=== PATIENT | male | born 1980 ===

== ENCOUNTER → 2023-01-29 07:05 | Outpatient (CLI) | payer OTHER, SELFPAY ==
--- NOTE | ~2023-01-29 | MR_ITS ---
EXAMINATION: MR knee LT wo con DATE: 01/29/2023 07:42 INDICATION: Left knee pain TECHNIQUE: Magnetic resonance imaging (MRI) of the left knee was performed without intravenous contra st. Sequences included coronal PD-weighted FSE, coronal PD-weighted FS FSE, sagittal T2-weighted FSE , sagittal PD-weighted FS FSE and axial PD weighted fat saturated FSE. COMPARISON: None. FINDINGS: Medial compartment: Medial meniscus is normal. Articular cartilage is normal. Lateral compartment: Lateral meniscus is normal. Articular cartilage is normal. Patellofemoral compartment: Chondral fissuring involving less than 50% the cartilage thickness at both the medial and lateral pat ellar facets. Ligaments and tendons: Anterior and posterior cruciate ligaments are normal. The medial collateral ligament and fibular heather ateral ligament complex are normal. The extensor mechanism is normal. The visualized medial and later al hamstring tendons as well as the iliotibial band are normal. Fluid: Small left knee joint effusion at the suprapatellar pouch. No loose osteochondral bodies identified. Osseous/other: Bone marrow edema without evident fracture line along the lateral margin of the lateral femoral condy le near the junction of the lateral trochlea and anterior weightbearing portion of the condyle likely representing a bone contusion. There is additional marrow edema associated with a subcortical low si gnal intensity trabecular fracture line at the anterior margin of the lateral tibial plateau. No path ologic marrow replacing process. Likely reactive mild edema along the posterior aspect of Hoffa's fat pad. IMPRESSION: 1. Nondisplaced likely incomplete subarticular impaction fracture along the anterior margin of the la teral tibial plateau. 2. Likely bone contusion at the lateral margin of the junction of the lateral trochlea and anterior w eightbearing lateral femoral condyle. 3. Moderate grade chondromalacia with partial thickness chondral fissuring involving less than 50% th e cartilage thickness at the medial and lateral patellar facets. 4. Normal menisci and stabilizing ligaments of the knee. Reviewed, dictated and finalized at location A. [facility] [employer] IMPRESSION: 1. Nondisplaced likely incomplete subarticular impaction fracture along the ant erior margin of the lateral tibial plateau. 2. Likely bone contusion at the lateral margin of the junction of the lateral t rochlea and anterior weightbearing lateral femoral condyle. 3. Moderate grade chondromalacia with partial thickness chondral fissuring invo lving less than 50% the cartilage thickness at the medial and lateral patellar facets. 4. Normal menisci and stabilizing ligaments of the knee.
== END ==
DX: M25.562 Pain in left knee (principal)
CPT/HCPCS: 73721